=== PATIENT | female | born 1950 | race Hispanic/Latino ===

== ENCOUNTER 2019-02-17 16:03 | Emergency (ER) | payer MEDICARE, OTHER ==
[~2019-02-17] VITALS: Ht 162.6 cm; Wt 72.6 kg
--- OUTSIDE RECORDS SUMMARY | 2019-02-17 16:05 | XMS REPORT | Clinical Summary ---
Author Author NAHID [employer] 3DNell J. Red[facility] HospitalRevenewShrin[facility] Organization [facility] Address Unknown Phone Unavailable Care Team Providers Care Circulation Clerk Name Role Phone Abran Spearabel PCP Unavailable Allergies Comments Active Allergy Reactions Severity Noted Date cough Bad cough Chon Inhibitors Other (See 01/16/2015 Comments) Other reaction(s): Cough Lisinopril 03/10/2016 Medications End Date Status Medication Sig Dispensed Refills Start Date Active levothyroxine (SYNTHROID, Take 88 mcg 0 LEVOTHROID) 100 MCG by mouth tablet daily . Active valsartan-hydrochlorothia Take 1 tablet 0 zide (DIOVAN-HCT) by mouth 160-12.5 mg per tablet daily. Active estradiol (ESTRACE) 0.5 Take 0.5 mg 0 MG tablet by mouth daily. Active fluticasone (FLONASE) 50 1 spray by 0 mcg/actuation nasal spray Nasal route daily. Active pantoprazole (PROTONIX) Take 1 tablet 30 tablet 3 40 MG tablet (40 mg total) 5 by mouth daily. Active pantoprazole (PROTONIX) Take 1 tablet 30 tablet 9 40 MG tablet (40 mg total) 5 by mouth daily. Active traMADol (ULTRAM) 50 mg Take 50 mg by 0 tablet mouth every 6 (six) hours as needed for Pain. 01/28/2019 phenazopyridine Take 1 tablet 30 tablet 0 (PYRIDIUM) 100 MG tablet (100 mg 9 total) by mouth 3 (three) times daily as needed for up to 10 days. 01/23/2019 sulfamethoxazole-trimetho Take 1 tablet 10 tablet 0 prim (BACTRIM DS) 800-160 (160 mg of 9 mg per tablet trimethoprim total) by mouth 2 (two) times daily for 5 days. 01/28/2019 traMADol (ULTRAM) 50 mg Take 1 tablet 30 tablet 0 tablet (50 mg total) 9 by mouth every 6 (six) hours as needed for Pain for up to 10 days. Max Daily Amount: 200 mg Active Problems Problem Noted Date HECTOR (stress urinary incontinence, female) 01/18/2019 Encounters Care Team Description Date Type Specialty Suhail Suggs MD 01/18/2019 Anesthesia Event Luciano Munoz MD SLING,PUBO VAGINAL 01/18/2019 Surgery Luciano Munoz MD 01/18/2019 Hospital Encounter Luciano Munoz MD 01/04/2019 Hospital Pre-Admission Testing Encounter 01/04/2019 Orders Only General Internal Medicine after 02/16/2018 Social History Date Tobacco Use Types Packs/Day Years Used Never Smoker Smokeless Tobacco: Never Used Alcohol Use Drinks/Week oz/Week Comments Yes occassional Sex Assigned at Date Recorded Not on file Industry Job Start Date Occupation Not on file Not on file Not on file Travel End Travel History Travel Start No recent travel history available. Last Filed Vital Signs Time Taken Vital Sign Reading 01/18/2019 12:45 PM CDT Blood Pressure 120/68 01/18/2019 12:45 PM CDT Pulse 78 01/18/2019 12:45 PM CDT Temperature 35.9 C (96.7 F) 01/18/2019 12:45 PM CDT Respiratory Rate 17 01/18/2019 12:45 PM CDT Oxygen Saturation 96% - Inhaled Oxygen - Concentration 01/18/2019 6:25 AM CDT Weight 73.4 kg (161 lb 13.1 oz) 01/18/2019 6:25 AM CDT Height 162.6 cm (5' 4") 01/18/2019 6:25 AM CDT Body Mass Index 27.78 Plan of Treatment Not on file Implants Device Identifier Shelf Expiration Date Model / Serial / Lot Implanted Type Area Manufactur er 05/05/2021 [id number] / / [id number] Sys Halo Obtryx Ii [id number] - IMPLANTS N/A: Vagina [employer] [id number] SCI:UROLOG Implanted: Qty: 1 on 01/18/2019 by Y/GYNECLuciano Ramirez MD GY Procedures Comments Procedure Name Priority Date/Time Associated Diagnosis RHYTHM STRIP - SCAN 01/19/2019 4:20 PM CDT SLING,PUBO VAGINAL 01/18/2019 Female stress 9:15 AM CDT incontinence Special Needs (OBTRYX II SLING) ECG 12-LEAD Routine 01/04/2019 10:26 AM CDT Procedure Note - Interface, External Ris In - 01/04/2019 4:41 PM CDT Ventricula r Rate 58 BPM Atrial Rate 58 BPM P-R Interval 148 ms QRS Duration 90 ms Q-T Interval 470 ms QTC Calculatio n(Bazett) 461 ms P [place] 23 degrees R [place] 26 degrees T [place] 7 degrees Sinus bradycardi a Otherwise normal ECG When compared with ECG of 6 18:11, Vent. rate has decreased BY 45 BPM ECG 12-LEAD Routine 01/04/2019 10:26 AM CDT CBC W/PLT COUNT & AUTO Routine 01/04/2019 DIFFERENTIAL 10:24 AM CDT APTT Routine 01/04/2019 10:24 AM CDT PROTHROMBIN TIME/INR Routine 01/04/2019 10:24 AM CDT CBC W/PLT COUNT & AUTO Routine 01/04/2019 DIFFERENTIAL 10:24 AM CDT BASIC METABOLIC PANEL (7) Routine 01/04/2019 10:24 AM CDT URINALYSIS W/ MICROSCOPIC Routine 01/04/2019 10:24 AM CDT URINE CULTURE Routine 01/04/2019 10:24 AM CDT after 02/16/2018 Results * RHYTHM STRIP - SCAN (01/19/2019 4:20 PM CDT) Narrative Performed At * ECG 12 lead (01/04/2019 10:26 AM CDT) Specimen Narrative Performed At Ventricular Rate 58 BPM [facility] Atrial Rate 58 BPM P-R Interval 148 ms QRS Duration 90 ms Q-T Interval 470 ms QTC Calculation(Bazett) 461 ms P [place] 23 degrees R [place] 26 degrees T [place] 7 degrees Sinus bradycardia Otherwise normal ECG When compared with ECG of 02-JUN-2006 18:11, Vent. rate has decreased BY45 BPM Confirmed by MD ORTEGA JOSEPH P ([id number]) on 01/05/2019 6:57:08 AM Procedure Note Interface, External Ris In - 01/05/2019 6:57 AM CDT Ventricular Rate 58 BPM Atrial Rate 58 BPM P-R Interval 148 ms QRS Duration 90 ms Q-T Interval 470 ms QTC Calculation(Bazett) 461 ms P [place] 23 degrees R [place] 26 degrees T [place] 7 degrees Sinus bradycardia Otherwise normal ECG When compared with ECG of 02-JUN-2006 18:11, Vent. rate has decreased BY 45 BPM Confirmed by MD ORTEGA JOSEPH P ([id number]) on 01/05/2019 6:57:08 AM Performing Organization Address City/State/Zipcode Phone Number [facility] * CBC with platelet count + automated diff (01/04/2019 10:24 AM CDT) WBC 5.6 3.5 - 10.5 K/L [facility] RBC 4.85 3.93 - 5.22 M/L [facility] Hemoglobin 13.6 11.2 - 15.7 GM/DL [facility] Hematocrit 41.1 34.1 - 44.9 % [facility] MCV 84.7 79.4 - 94.8 fL [facility] MCH 28.0 25.6 - 32.2 pg [facility] MCHC 33.1 32.2 - 35.5 GM/DL [facility] RDW 12.9 11.7 - 14.4 % [facility] Platelets 199 150 - 450 K/CU MM [facility] MPV 9.2 (L) 9.4 - 12.3 fL [facility] nRBC 0 0 - 0 /100 WBC [facility] % Neutros 57 % [facility] % Lymphs 34 % [facility] % Monos 7 % [facility] % Eos 1 % [facility] % Baso 0 % [facility] # Neutros 3.21 1.56 - 6.13 K/L [facility] # Lymphs 1.91 1.18 - 3.74 K/L [facility] # Monos 0.39 (H) 0.24 - 0.36 K/L [facility] # Eos 0.08 0.04 - 0.36 K/L [facility] # Baso 0.02 0.01 - 0.08 K/L [facility] Immature 1 0 - 1 % [facility] Granulocytes-Relative [facility] Specimen Blood Performing Organization Address City/State/Zipcode Phone Number [facility] [address] [place] [address] [facility] * Urinalysis w/Microscopic (01/04/2019 10:24 AM CDT) Color, UA Light Yellow [facility] Clarity, UA Clear [facility] Specific [place], UA 1.010 1.001 - 1.035 [facility] pH, UA 6.0 5.0 - 8.0 [facility] Protein, UA Negative Negative [facility] Glucose, UA Negative Negative [facility] Ketones, UA Negative Negative [facility] Bilirubin, UA Negative Negative [facility] Blood, UA Negative Negative [facility] Nitrite, UA Negative Negative [facility] Leukocytes, UA Negative Negative [facility] Urobilinogen, UA 0.2 0.2 - 1.0 mg/dL [facility] RBC, UA <1 /HPF [facility] WBC, UA 3 /HPF [facility] Bacteria, UA Rare [facility] Squam Epithel, UA 1 /HPF [facility] Specimen Source Urine, Clean Catch [facility] Specimen Urine Performing Organization Address [facility] Phone Number [address] [address] [facility] * aPTT (01/04/2019 10:24 AM CDT) PTT 38.5 (H) 22.5 - 36.0 seconds [facility] Specimen Blood Performing Organization Address [facility] Phone Number [address] [address] [facility] * Prothrombin time/INR (01/04/2019 10:24 AM CDT) Protime 12.9 11.9 - 14.2 seconds [facility] INR 1.0 <=5.9 [facility] Specimen Blood Narrative Performed At Effective 11/23/2018: PT Reference Range Change [facility] New: 11.9-14.2Previous: 11.7-14.7 [facility] RECOMMENDED COUMADIN/WARFARIN INR THERAPY RANGES STANDARD DOSE: 2.0-3.0Includes: PROPHYLAXIS for venous thrombosis, systemic embolization; TREATMENT for venous thrombosis and/or pulmonary embolus. HIGH RISK: Target INR is 2.5-3.5 for patients wiht mechanical heart valves. Performing Organization Address [facility] Phone Number [address] [address] [facility] * Urine culture (01/04/2019 10:24 AM CDT) Result 90-99,000 col/mL Klebsiella [facility] pneumoniae (A) [facility] Specimen Urine Antibiotic Method Susceptibility Organism Amikacin <=2: Susceptible Klebsiella pneumoniae Ampicillin + Sulbactam 4: Susceptible Klebsiella pneumoniae Aztreonam <=1: Susceptible Klebsiella pneumoniae Cefepime <=1: Susceptible Klebsiella pneumoniae Cefoxitin <=4: Susceptible Klebsiella pneumoniae Ceftazidime <=1: Susceptible Klebsiella pneumoniae Ceftriaxone <=1: Susceptible Klebsiella pneumoniae Ertapenem <=0.5: Susceptible Klebsiella pneumoniae Gentamicin <=1: Susceptible Klebsiella pneumoniae Levofloxacin <=0.12: Susceptible Klebsiella pneumoniae Meropenem <=0.25: Susceptible Klebsiella pneumoniae Nitrofurantoin 64: Intermediate Klebsiella pneumoniae Piperacillin + Tazobactam <=4: Susceptible Klebsiella pneumoniae Tetracycline <=1: Susceptible Klebsiella pneumoniae Tobramycin <=1: Susceptible Klebsiella pneumoniae Trimethoprim + Sulfamethoxazole <=20: Susceptible Klebsiella pneumoniae Performing Organization Address City/[facility] Phone Number [facility] [phone] [place] [address] [facility] * Basic Metabolic Panel (01/04/2019 10:24 AM CDT) Sodium 138 136 - 145 meq/L [facility] Potassium 4.0 3.5 - 5.1 meq/L [facility] Chloride 104 98 - 107 meq/L [facility] CO2 26 22 - 29 meq/L [facility] BUN 13 7 - 21 mg/dL [facility] Creatinine 0.75 0.57 - 1.25 mg/dL [facility] Glucose 102 70 - 105 mg/dL [facility] Calcium 9.3 8.4 - 10.2 mg/dL [facility] EGFR 77Comment: ESTIMATED GFR IS mL/min/1.73 sq m [facility] NOT ACCURATE CREATININE [facility] CLEARANCE IN PREDICTING GLOMERULAR FILTRATION RATE. ESTIMATED GFR IS NOT APPLICABLE FOR DIALYSIS PATIENTS. Specimen Blood Performing Organization Address City/[facility]/Zipcode Phone Number [facility] [address] [place] [address] [facility] after 02/16/2018 Insurance Payer Benefit Subscriber ID Type Phone Address Plan / Group MEDICARE MEDICARE A xxxxxxxxxxx Medicare B CIGNA - MGD CARE CIGNA xxxxxxxxxxx HMO/POS HMO/POS/OP EN ACCESS
--- OUTSIDE RECORDS SUMMARY | 2019-02-17 16:06 | XMS REPORT | Summary of Care ---
Author Author [facility] Organization [facility] Address Unknown Phone Unavailable Care Team Providers Care Machine Stitcher Name Role Phone Phan Bee MD Unavailable Unavailable Ebenezer Stout MD Unavailable Owen Jenkins Unavailable Denisse Paige DO PCP Reason for Visit * Reason Comments Medical Concern Encounter Details Care Team Description Date Type Department Luciano Munoz MD [address] [facility] [facility] [facility] [address] [facility], [place] [address] Medical Concern 02/16/2019 Office Visit [facility] Urology [address] [place] [address], [facility] [place] [address] Allergies Comments Active Allergy Reactions Severity Noted Date Cough;pt stated Lisinopril Chon Inhibitors RESP 09/26/2008 documented as of this encounter (statuses as of 02/16/2019) Medications End Date Status Medication Sig Dispensed Refills Start Date Active cyclobenzaprine 0 (FLEXERIL) 10 MG tablet 7 Active mupirocin (BACTROBAN) 2 % Apply 0 ointment topically daily. Active Diclofenac Sodium 1 % Place 1 1 Tube 3 GELIndications: Stiffness application 8 of hand joint, onto the skin unspecified laterality, two times Arthralgia of hand, daily. unspecified laterality, Primary osteoarthritis of both hands, NSAID induced gastritis Active guaiFENesin-Codeine Take 5 mL by 180 mL 0 (GUAIFENESIN AC) 100-10 mouth 4 times 9 MG/5ML liquid daily as needed for Cough. Active valsartan-hydrochlorothia Take 1 Tab by 90 Tab 2 zide (DIOVAN-HCT) mouth daily. 9 160-12.5 MG per tabletIndications: Essential hypertension Active levothyroxine (SYNTHROID) Take 1 Tab by 90 Tab 3 88 MCG tabletIndications: mouth daily. 9 Hypothyroidism, unspecified type Active pantoprazole (PROTONIX) TAKE ONE (1) 90 Tab 1 40 MG tabletIndications: TABLET(S) BY 9 Gastroesophageal reflux MOUTH ONCE A disease without DAY. esophagitis Active Mirabegron ER (MYRBETRIQ) Take 25 mg by 30 Tab 3 25 MG [id number]: mouth daily. 9 Incomplete bladder emptying, Urinary frequency Active estradiol (ESTRACE Place 1 g 42.5 g 3 VAGINAL) 0.1 MG/GM vaginally 3 9 vaginal creamIndications: times weekly. Vaginal atrophy Use daily for 2 wks then 3 times weekly Active oxybutynin (DITROPAN-XL) Take 1 Tab by 30 Tab 6 10 MG CR mouth daily. 9 tabletIndications: Urinary frequency, Mixed incontinence Active levofloxacin (LEVAQUIN) Take 1 Tab by 7 Tab 0 500 MG tabletIndications: mouth daily. 9 Urinary tract infection without hematuria, site unspecified Active estradiol (ESTRACE) 0.5 TAKE ONE (1) 30 Tab 0 MG tabletIndications: TABLET(S) BY 9 Estrogen deficiency MOUTH ONCE A DAY. Active fluticasone (FLONASE) 50 INHALE TWO 16 g 0 MCG/ACT nasal (2) SPRAYS BY 9 sprayIndications: EACH NOSTRIL Allergic sinusitis ROUTE DAILY. Active phenazopyridine 0 (PYRIDIUM) 100 MG tablet 9 Active sulfamethoxazole-trimetho 0 prim (BACTRIM DS, SEPTRA 9 DS) 800-160 MG per tablet Active tramadol (ULTRAM) 50 MG 0 tablet 9 documented as of this encounter (statuses as of 02/16/2019) Active Problems Problem Noted Date Urinary incontinence 09/23/2017 Lumbar spinal stenosis 05/06/2016 Internal hemorrhoids with complication 03/20/2016 Thyroid nodule 03/07/2014 Snoring 09/08/2013 Hypothyroidism 09/24/2011 Overview: Toxic adenoma - 2010 - treated HTN (hypertension) 10/08/2009 Chronic colitis Overview: GI- Dr Canales - proctitis only in 2009 Recommendations: - 5 year colon cancer screening colonoscopy 3-5 year sigmoidoscopy to confirm lack of extension of colitis process. documented as of this encounter (statuses as of 02/16/2019) Resolved Problems Problem Noted Date Resolved Date H/O colonoscopy with polypectomy 08/29/2014 09/17/2016 Overview: Due in 2019 TMJ (temporomandibular joint disorder) 09/08/2013 12/02/2016 Toxic adenoma 01/20/2011 07/19/2013 Hyperthyroidism 10/20/2010 07/19/2013 Other and unspecified noninfectious gastroenteritis and colitis(558.9) 04/30/2010 09/17/2016 Overview: Dr. Canales - taking Asacol DISORDER, BACK NOS, L3-L5 FACET JOINT INFLAMMATION 12/20/2001 12/02/2016 SCREENING FOR MALIGNANT NEOPLASM, COLON 09/30/2001 07/04/2009 HX, FAMILY, MALIGNANCY NEC 09/30/2001 07/04/2009 Examination, gynecological 03/29/2001 07/04/2009 Hypertriglyceridemia 09/17/2016 Breast calcification, left 09/17/2016 Overview: benign as of 03/2011 documented as of this encounter (statuses as of 02/16/2019) Immunizations Name Administration Dates Next Due Influenza Hd 03/10/2018, 04/05/2017 Influenza Quad-PF 07/03/2015 Influenza Quadrivalent 09/17/2016 3YRS+ Influenza whole 07/19/2013, 06/03/2012, 04/30/2010 Pneumococcal 13-valent 01/01/2017 Conjugate Vaccine Pneumococcal 03/10/2018 Polysaccharide Tdap 03/05/2011 Zoster Live 07/22/2012 documented as of this encounter Social History Date Tobacco Use Types Packs/Day Years Used Never Smoker Smokeless Tobacco: Never Used Drinks/Week oz/Week Comments Alcohol Use 0-6 Standard drinks or equivalent 0.0 - 3.6 Yes Alcohol Habits Answer Date Recorded How often do you have a drink containing alcohol? Monthly or less 2018 How many drinks containing alcohol do you have on 1 or 2 2018 a typical day when you are drinking? How often do you have six or more drinks on one Never 2018 occasion? Sex Assigned at Date Recorded Not on file Industry Job Start Date Occupation Not on file Not on file Not on file Travel End Travel History Travel Start No recent travel history available. documented as of this encounter Last Filed Vital Signs Reading Time Taken Comments Vital Sign 139/82 02/16/2019 10:04 AM CDT Blood Pressure 68 02/16/2019 10:04 AM CDT Pulse 36.8 C (98.3 F) 02/16/2019 10:04 AM CDT Temperature - - Respiratory Rate - - Oxygen Saturation - - Inhaled Oxygen Concentration 72.6 kg (160 lb) 02/16/2019 10:04 AM CDT Weight 162.6 cm (5' 4") 02/16/2019 10:04 AM CDT Height 27.46 02/16/2019 10:04 AM CDT Body Mass Index documented in this encounter Progress Notes * Trupti Turner - 02/16/2019 10:05 AM CDT HPI Review of Systems Constitutional: Negative. Eyes: Negative. Respiratory: Negative. Cardiovascular: Negative. Gastrointestinal: Negative. Endocrine: Negative. Genitourinary: Negative. Musculoskeletal: Negative. Skin: Negative. Neurological: Negative. Hematological: Negative. Psychiatric/Behavioral: Negative. Physical Exam * Luciano Munoz MD - 02/16/2019 9:30 AM CDT Referring Physician Denisse Paige DO [address] [place] [address] Patient Name: Genesis Kyle :1950 [facility] ID#:[id number] Ms. Kyle is a 68 y.o. year old female who present to me for evaluation. Pt 1 month s/p TOT Obtryx II sling. Pt doing well, no HECTOR. Has occasional pains in suprapubic area but unrelated to bladder filling/activity. Past Medical History: Diagnosis Date Breast calcification, left benign as of 03/2011 Chronic colitis GI- Dr Canales GERD (gastroesophageal reflux disease) H/O colonoscopy with polypectomy 11/27/2009 History of one miscarriage History of RPR test 06/08/2012 Hyperthyroidism 10/20/2010 Hypertriglyceridemia Unspecified essential hypertension Past Surgical History: Procedure Laterality Date HX HYSTERECTOMY 2005 menorrhagia HX TONSILLECTOMY in childhood Medications Outpatient Medications Prior to Visit Medication Sig Dispense Refill cyclobenzaprine Diclofenac Sodium Place 1 application onto the skin two times daily. [address] 1 g vaginally 3 times weekly. Use daily for 2 wks then 3 arti es weekly 42.5 g 3 estradiol TAKE ONE (1) TABLET(S) BY MOUTH ONCE A DAY. 30 Tab 0 fluticasone INHALE TWO (2) SPRAYS BY EACH NOSTRIL ROUTE DAILY. 16 g 0 guaiFENesin-Codeine Take 5 mL by mouth 4 times daily as needed for Cough. 18 0 mL 0 levofloxacin Take 1 Tab by mouth daily. 7 Tab 0 levothyroxine Take 1 Tab by mouth daily. 90 Tab 3 Mirabegron ER Take 25 mg by mouth daily. 30 Tab 3 mupirocin Apply topically daily. oxybutynin Take 1 Tab by mouth daily. 30 Tab 6 pantoprazole TAKE ONE (1) TABLET(S) BY MOUTH ONCE A DAY. 90 Tab 1 phenazopyridine sulfamethoxazole-trimethoprim tramadol valsartan-hydrochlorothiazide Take 1 Tab by mouth daily. 90 Tab 2 No facility-administered medications prior to visit. Current Outpatient Medications: cyclobenzaprine (FLEXERIL) 10 MG tablet, , Disp: , Rfl: Diclofenac Sodium 1 % GEL, Place 1 application onto the skin two times dimple y., Disp: 1 Tube, Rfl: 3 estradiol (ESTRACE VAGINAL) 0.1 MG/GM vaginal cream, Place 1 g vaginally 3 times weekly. Use daily for 2 wks then 3 times weekly, Disp: 42.5 g, Rfl: 3 estradiol (ESTRACE) 0.5 MG tablet, TAKE ONE (1) TABLET(S) BY MOUTH ONCE A D AY., Disp: 30 Tab, Rfl: 0 fluticasone (FLONASE) 50 MCG/ACT nasal spray, INHALE TWO (2) SPRAYS BY EACH NOSTRIL ROUTE DAILY., Disp: 16 g, Rfl: 0 guaiFENesin-Codeine (GUAIFENESIN AC) 100-10 MG/5ML liquid, Take 5 mL by juan carlos th 4 times daily as needed for Cough., Disp: 180 mL, Rfl: 0 levofloxacin (LEVAQUIN) 500 MG tablet, Take 1 Tab by mouth daily., Disp: 7 Tab, Rfl: 0 levothyroxine (SYNTHROID) 88 MCG tablet, Take 1 Tab by mouth daily., Disp: 90 Tab, Rfl: 3 Mirabegron ER (MYRBETRIQ) 25 MG TB24, Take 25 mg by mouth daily., Disp: 30 Tab, Rfl: 3 mupirocin (BACTROBAN) 2 % ointment, Apply topically daily., Disp: , Rfl: oxybutynin (DITROPAN-XL) 10 MG CR tablet, Take 1 Tab by mouth daily., Disp: 30 Tab, Rfl: 6 pantoprazole (PROTONIX) 40 MG tablet, TAKE ONE (1) TABLET(S) BY MOUTH ONCE A DAY., Disp: 90 Tab, Rfl: 1 phenazopyridine (PYRIDIUM) 100 MG tablet, , Disp: , Rfl: sulfamethoxazole-trimethoprim (BACTRIM DS, SEPTRA DS) 800-160 MG per tablet , , Disp: , Rfl: tramadol (ULTRAM) 50 MG tablet, , Disp: , Rfl: valsartan-hydrochlorothiazide (DIOVAN-HCT) 160-12.5 MG per tablet, Take 1 T ab by mouth daily., Disp: 90 Tab, Rfl: 2 Social History Socioeconomic History Marital status: Spouse name: Not on file Number of children: 2 Years of education: Not on file Highest education level: Not on file Occupational History Occupation: legal secretary receptionist Employer: [employer] Social Needs Financial resource strain: Not on file Food insecurity: Worry: Not on file Inability: Not on file Transportation needs: Medical: Not on file Non-medical: Not on file Tobacco Use Smoking status: Never Smoker Smokeless tobacco: Never Used Substance and Sexual Activity Alcohol use: Yes Alcohol/week: 0.0 - 3.6 oz Frequency: Monthly or less Drinks per session: 1 or 2 Binge frequency: Never Drug use: Not on file Sexual activity: Not on file Lifestyle Physical activity: Days per week: Not on file Minutes per session: Not on file Stress: Not on file Relationships Social connections: Talks on phone: Not on file Gets together: Not on file Attends faith service: Not on file Active member of club or organization: Not on file Attends meetings of clubs or organizations: Not on file Relationship status: Not on file Intimate partner violence: Fear of current or ex partner: Not on file Emotionally abused: Not on file Physically abused: Not on file Forced sexual activity: Not on file Other Topics Concerns: Not on file Social History Narrative 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 Allergies Allergen Reactions Chon Inhibitors RESP Cough;pt stated Lisinopril Review of Systems: Constitutional: Negative. Eyes: Negative. Respiratory: Negative. Cardiovascular: Negative. Gastrointestinal: Negative. Endocrine: Negative. Genitourinary: Negative. Musculoskeletal: Negative. Skin: Negative. Neurological: Negative. Hematological: Negative. Psychiatric/Behavioral: Negative. Physical Exam: Vitals: see in note above GENERAL: Well developed, well nourished, in no acute distress HEAD: Normocephalic and atraumatic CHEST Regular respiratory rate PELVIC EXAM Vaginal atrophy, no sling erosion, midline suture still intact NEURO: WOLF well. Patient alert and oriented x3. PSYCH: Alert and cooperative; normal mood and affect; normal attention span and con centration Most Recent Labs: Results for orders placed or performed in visit on 02/16/19 (from the past 4032 hour(s)) POCT URINALYSIS DIPSTICK Collection Time: 02/16/19 12:00 AM Result Value Ref Range COLOR UA Yellow YELLOW/STRAW CLARITY UA Clear CLEAR GLUCOSE UA Negative NEGATIVE BILIRUBIN UA Negative NEGATIVE KETONES UA Negative NEGATIVE SPECIFIC GRAVITY UA 1.020 1.005 - 1.035 BLOOD UA Negative NEGATIVE PH UA 5.0 5 - 9 PROTEIN UA Negative NEGATIVE UROBILINOGEN UA 0.02 E.U/DL NORMAL MG/DL LEUKOCYTE ESTERASE UA Negative NEGATIVE NITRITE UA Negative NEGATIVE REDUCING SUBSTANCES URINE NEGATIVE Results for orders placed or performed in visit on 01/04/19 (from the past 4032 hour(s)) URINE CULTURE Collection Time: 01/04/19 10:24 AM Result Value Ref Range AMIKACIN <=2 (S) AMPICILLIN/SULBACTAM 4 (S) MICROSCOPIC <=1 (S) CEFEPIME <=1 (S) CEFOXITIN <=4 (S) CEFTAZIDIME <=1 (S) CEFTRIAXONE <=1 (S) ADDENDUM 2 <=0.5 (S) GENTAMICIN <=1 (S) LEVOFLOXACIN <=0.12 (S) MEROPENEM <=0.25 (S) NITROFURANTOIN 64 (I) PIPERACILLIN/TAZOBACTAM <=4 (S) TETRACYCLINE <=1 (S) TOBRAMCYIN <=1 (S) TRIMETHOPRIM/SULFAMETHOXAZOLE <=20 (S) CBC W/AUTO DIFF WITH PLATELETS Collection Time: 01/04/19 10:24 AM Result Value Ref Range WHITE BLOOD CELL COUNT 5.6 3.5 - 10.5 K/ L RED BLOOD CELL COUNT 4.85 3.93 - 5.22 M/ L HEMOGLOBIN 13.6 11.2 - 15.7 GM/DL HEMATOCRIT 41.1 34.1 - 44.9 % MEAN CORPUSCULAR VOLUME 84.7 79.4 - 94.8 fL MEAN CORPUSCULAR HEMOGLOBIN 28.0 25.6 - 32.2 pg MEAN CORPUSCULAR HEMOGLOBIN CONC 33.1 32.2 - 35.5 GM/DL RED CELL DISTRIBUTION WIDTH 12.9 11.7 - 14.4 % PLATELET COUNT 199 150 - 450 K/CU MM MEAN PLATELET VOLUME 9.2 (L) 9.4 - 12.3 fL NUCLEATED RED BLOOD CELLS 0 0 - 0 /100 WBC NEUTROPHILS % 57 % LYMPHOCYTES % 34 % MONOCYTES % 7 % EOSINOPHILS % 1 % BASOPHILS % 0 % NEUTROPHILS ABSOLUTE COUNT 3.21 1.56 - 6.13 K/ L LYMPHOCYTES ABSOLUTE COUNT 1.91 1.18 - 3.74 K/ L MONOCYTES ABSOLUTE COUNT 0.39 (H) 0.24 - 0.36 K/ L EOSINOPHILS ABSOLUTE COUNT 0.08 0.04 - 0.36 K/ L BASOPHILS ABSOLUTE COUNT 0.02 0.01 - 0.08 K/ L IMMATURE GRANULOCYTES 1 0 - 1 % PROTIME-INR Collection Time: 01/04/19 10:24 AM Result Value Ref Range PROTIME 12.9 11.9 - 14.2 seconds INR 1.0 <=5.9 APTT Collection Time: 01/04/19 10:24 AM Result Value Ref Range PARTIAL THROMBOPLASTIN TIME 38.5 (H) 22.5 - 36.0 seconds BASIC METABOLIC PANEL Collection Time: 01/04/19 10:24 AM Result Value Ref Range SODIUM 138 136 - 145 meq/L POTASSIUM 4.0 3.5 - 5.1 meq/L CHLORIDE 104 98 - 107 meq/L CO2 26 22 - 29 meq/L BLOOD UREA NITROGEN 13 7 - 21 mg/dL CREATININE 0.75 0.57 - 1.25 mg/dL GLUCOSE 102 70 - 105 mg/dL CALCIUM 9.3 8.4 - 10.2 mg/dL EGFR 77 mL/min/1.73 sq m URINALYSIS AUTO W/SCOPE Collection Time: 01/04/19 10:24 AM Result Value Ref Range COLOR UA Light Yellow CLARITY UA Clear SPECIFIC GRAVITY UA 1.010 1.001 - 1.035 PH UA 6.0 5.0 - 8.0 PROTEIN UA Negative Negative GLUCOSE UA Negative Negative KETONES UA Negative Negative BILIRUBIN UA Negative Negative BLOOD UA Negative Negative NITRITE UA Negative Negative LEUKOCYTE ESTERASE UA Negative Negative UROBILINOGEN UA 0.2 0.2 - 1.0 mg/dL RBC UA <1 /HPF WBC UA 3 /HPF BACTERIA Rare SQUAMOUS EPITHELIAL 1 /HPF SOURCE Urine, Clean Catch Results for orders placed or performed in visit on 10/13/18 (from the past 4032 hour(s)) POCT URINALYSIS DIPSTICK Collection Time: 10/13/18 12:00 AM Result Value Ref Range COLOR UA Yellow YELLOW/STRAW CLARITY UA Clear CLEAR GLUCOSE UA Negative NEGATIVE BILIRUBIN UA Negative NEGATIVE KETONES UA Negative NEGATIVE SPECIFIC GRAVITY UA 1.025 1.005 - 1.035 BLOOD UA Small 1+ NEGATIVE PH UA 6.0 5 - 9 PROTEIN UA Negative NEGATIVE UROBILINOGEN UA 0.02 E.U/DL NORMAL MG/DL LEUKOCYTE ESTERASE UA Negative NEGATIVE NITRITE UA Negative NEGATIVE REDUCING SUBSTANCES URINE NEGATIVE Results for orders placed or performed in visit on 09/29/18 (from the past 4032 hour(s)) POCT URINALYSIS DIPSTICK Collection Time: 09/29/18 10:45 AM Result Value Ref Range COLOR UA Eli YELLOW/STRAW CLARITY UA Clear CLEAR GLUCOSE UA Negative NEGATIVE BILIRUBIN UA Negative NEGATIVE KETONES UA Negative NEGATIVE SPECIFIC GRAVITY UA 1.010 1.005 - 1.035 BLOOD UA Negative NEGATIVE PH UA 6.5 5 - 9 PROTEIN UA Negative NEGATIVE UROBILINOGEN UA 0.02 E.U/DL NORMAL MG/DL LEUKOCYTE ESTERASE UA Trace NEGATIVE NITRITE UA Trace NEGATIVE REDUCING SUBSTANCES URINE NEGATIVE CULTURE, URINE/SENSITIVITY ON ALL Collection Time: 09/29/18 2:00 PM Result Value Ref Range CULTURE, URINE/SENSITIVITY ON ALL SPECIMEN NUMBER: [id number] URINALYSIS AUTO W/SCOPE Collection Time: 09/29/18 2:00 PM Result Value Ref Range COLOR UA YELLOW YELLOW-STRAW CLARITY UA CLOUDY (A) CLEAR SPECIFIC GRAVITY UA 1.015 1.005 - 1.035 LEUKOCYTE ESTERASE UA NEGATIVE NEGATIVE NITRITE UA NEGATIVE NEGATIVE PH UA 5.0 5.0 - 9.0 PROTEIN UA NEGATIVE NEGATIVE GLUCOSE UA NEGATIVE NEGATIVE KETONES UA NEGATIVE NEGATIVE UROBILINOGEN UA <2.0 <=2.0 MG/DL BILIRUBIN UA NEGATIVE NEGATIVE OCCULT BLOOD UA NEGATIVE NEGATIVE WBC UA 0-5 0 - 5 /HPF RBC UA 0 0 - 5 /HPF EPITHELIAL CELLS 15-20 (A) 0 - 10 /HPF BACTERIA 2+ (A) NEGATIVE CASTS, URINE TRACE NONE-TRACE /LPF Urinalysis:neg PVR: 6 ml Most Recent Imaging: No images are attached to the encounter. Assessment: 1. S/p TOT Obtryx II sling--doing well Plan: 1. Resume normal activities 2. RTC 3 months with pvr 3. Rx estrace cream 3x/wk documented in this encounter Plan of Treatment Health Maintenance Due Date Last Done Comments FLU VACCINE > 6 MONTHS 01/26/2019 03/10/2018, 03/10/2018, 04/05/2017, Additional history exists BMI FOLLOW UP PLAN 03/10/2019 03/10/2018 COLON CANCER SCREENIN08/30/2019 08/29/2014, 03/07/2010 COLONOSCOPY FALL SCREEN 09/23/2019 2018 MEDICARE AWV 09/23/2019 2018, 2018, 09/23/2017, Additional history exists MAMMOGRAM ANNUAL 10/11/2019 10/10/2018, 10/08/2017, 09/25/2016, Additional history exists TETANUS SHOT (ADULT) 03/05/2021 03/05/2011 HEPATITIS C SCREENING Completed 06/03/2012 PREVNAR >=65 (PCV13) Completed 01/01/2017 OSTEOPOROSIS SCREENING Completed 10/08/2017, 08/13/2014 PNEUMOVAX >=65 (PPSV23) Completed 03/10/2018, 03/10/2018 documented as of this encounter Procedures Comments Procedure Name Priority Date/Time Associated Diagnosis LATOYA,POST-VOID Routine 02/16/2019 Incomplete bladder RES,US,NON-IMG emptying POCT URINALYSIS DIPSTICK Routine 02/16/2019 Incomplete bladder emptying documented in this encounter Results * LATOYA,POST-VOID RES,US,NON-IMG (02/16/2019) PVR 6 cc/ml * POCT URINALYSIS DIPSTICK (02/16/2019) COLOR UA Yellow YELLOW/STRAW CLARITY UA Clear CLEAR GLUCOSE UA Negative NEGATIVE BILIRUBIN UA Negative NEGATIVE KETONES UA Negative NEGATIVE SPECIFIC 1.020 1.005 - 1.035 GRAVITY UA BLOOD UA Negative NEGATIVE PH UA 5.0 5 - 9 PROTEIN UA Negative NEGATIVE UROBILINOGEN UA 0.02 E.U/DL NORMAL MG/DL LEUKOCYTE Negative NEGATIVE ESTERASE UA NITRITE UA Negative NEGATIVE REDUCING NEGATIVE SUBSTANCES URINE Specimen documented in this encounter Visit Diagnoses Diagnosis Incomplete bladder emptying - Primary documented in this encounter Insurance Type Payer Benefit Subscriber ID Effective Phone Address Plan / Dates Group Medicare MEDICARE MEDICARE xxxxxxxxxx 2016-P [id number] [place] [address] O [employer] [facility] OPEN xxxxxxxxxxx 2016-1 [id number] PLUS - [place] [employer] [phone] documented as of this encounter Advance Directives Patient Skidder Explanation Type Date Recorded Advance Directives and Living Will Power of Concrete Conveyor Operator
--- OUTSIDE RECORDS SUMMARY | 2019-02-17 16:06 | XMS REPORT ---
Author Author [facility] Address Unknown Phone Unavailable Care Team Providers Care Stain Sprayer Name Role Phone TIMOTHY VARGAS Unavailable Unavailable Problems This patient has no known problems. Allergies, Adverse Reactions, Alerts This patient has no known allergies or adverse reactions. Medications This patient has no known medications. Results Test Description Test Time Test Comments Text Results Atomic Results Result Comments URINE CULTURE 2019-01-06 11:14:00 CULTURE (BEAKER) (test yrrp=8841) KLEBSIELLA PNEUMONIAE 90-99,000 col/mL Klebsiella pneumoniae Amikacin (test code=1) Ampicillin + Sulbactam (test code=6) Aztreonam (test code=32) Cefepime (test code=51) Cefoxitin (test code=68) Ceftazidime (test code=27) Ceftriaxone (test code=52) Ertapenem (test code=38) Gentamicin (test code=18) Levofloxacin (test code=22) Meropenem (test code=34) Nitrofurantoin (test code=23) Piperacillin + Tazobactam (test code=29) Tetracycline (test code=2) Tobramycin (test code=25) Trimethoprim + Sulfamethoxazole (test code=47) URINALYSIS W/ [id number] 11:28:00* Test Item Value Reference Range Comments COLOR (BEAKER) (test xwst=938) Light Yellow CLARITY (BEAKER) (test ysdc=712) Clear SPECIFIC GRAVITY UA (BEAKER) (test yjke=917) 1.010 1.001-1.035 PH UA (BEAKER) (test zydy=084) 6.0 5.0-8.0 PROTEIN UA (BEAKER) (test gmet=395) Negative Negative GLUCOSE UA (BEAKER) (test pxum=732) Negative Negative KETONES UA (BEAKER) (test qsxv=521) Negative Negative BILIRUBIN UA (BEAKER) (test qsck=107) Negative Negative BLOOD UA (BEAKER) (test wmdw=638) Negative Negative NITRITE UA (BEAKER) (test dklq=376) Negative Negative LEUKOCYTE ESTERASE UA (BEAKER) (test szce=830) Negative Negative UROBILINOGEN UA (BEAKER) (test akaw=061) 0.2 mg/dL 0.2-1.0 RBC UA (BEAKER) (test vpjl=286) < /HPF WBC UA (BEAKER) (test yari=871) 3 /HPF BACTERIA (BEAKER) (test surr=176) Rare SQUAMOUS EPITHELIAL (BEAKER) (test cajr=829) 1 /HPF SOURCE(BEAKER) (test yqxs=2828) Urine, Clean Catch BASIC METABOLIC [id number] 11:06:00* Test Item Value Reference Range Comments SODIUM (BEAKER) (test fosd=184) 138 meq/L 136-145 POTASSIUM (BEAKER) (test pinn=482) 4.0 meq/L 3.5-5.1 CHLORIDE (BEAKER) (test izww=174) 104 meq/L 98-107 CO2 (BEAKER) (test cvsx=084) 26 meq/L 22-29 BLOOD UREA NITROGEN (BEAKER) (test oedt=006) 13 mg/dL 7-21 CREATININE (BEAKER) (test yyno=404) 0.75 mg/dL 0.57-1.25 GLUCOSE RANDOM (BEAKER) (test idly=402) 102 mg/dL 70-105 CALCIUM (BEAKER) (test tohs=549) 9.3 mg/dL 8.4-10.2 EGFR (BEAKER) (test nktv=1523) 77 mL/min/1.73 sq m ESTIMATED GFR IS NOT ACCURATE CREATININE CLEARANCE IN PREDICTING GLOMERULAR FILTRATION RATE. ESTIMATED GFR IS NOT APPLICABLE FOR DIALYSIS PATIENTS. PROTHROMBIN TIME/[id number] 10:52:00* Test Item Value Reference Range Comments PROTIME (BEAKER) (test deey=183) 12.9 seconds 11.9-14.2 INR (BEAKER) (test vqmu=624) 1.0 <=5.9 Effective 11/23/2018: PT Reference Range ChangeNew: 11.9-14.2 Previous: 11.7-14. 7RECOMMENDED COUMADIN/WARFARIN INR THERAPY RANGESSTANDARD DOSE: 2.0-3.0 Include s: PROPHYLAXIS for venous thrombosis, systemic embolization; TREATMENT for venou s thrombosis and/or pulmonary embolus.HIGH RISK: Target INR is 2.5-3.5 for patie nts wiht mechanical heart valves.[id number] 10:52:00* Test Item Value Reference Range Comments PARTIAL THROMBOPLASTIN TIME (BEAKER) (test phlj=774) 38.5 seconds 22.5-36.0 CBC W/PLT COUNT & AUTO [id number] 10:46:00* Test Item Value Reference Range Comments WHITE BLOOD CELL COUNT (BEAKER) (test mkjh=669) 5.6 K/ L 3.5-10.5 RED BLOOD CELL COUNT (BEAKER) (test uudp=949) 4.85 M/ L 3.93-5.22 HEMOGLOBIN (BEAKER) (test wpzz=898) 13.6 GM/DL 11.2-15.7 HEMATOCRIT (BEAKER) (test gpmr=751) 41.1 % 34.1-44.9 MEAN CORPUSCULAR VOLUME (BEAKER) (test webx=233) 84.7 fL 79.4-94.8 MEAN CORPUSCULAR HEMOGLOBIN (BEAKER) (test rpkd=057) 28.0 pg 25.6-32.2 MEAN CORPUSCULAR HEMOGLOBIN CONC (BEAKER) (test msvj=503) 33.1 GM/DL 32.2-35.5 RED CELL DISTRIBUTION WIDTH (BEAKER) (test pubh=014) 12.9 % 11.7-14.4 PLATELET COUNT (BEAKER) (test lafz=653) 199 K/CU MM 150-450 MEAN PLATELET VOLUME (BEAKER) (test sjpa=696) 9.2 fL 9.4-12.3 NUCLEATED RED BLOOD CELLS (BEAKER) (test zhqw=298) 0 /100 WBC 0-0 NEUTROPHILS RELATIVE PERCENT (BEAKER) (test zqzp=591) 57 % LYMPHOCYTES RELATIVE PERCENT (BEAKER) (test amfi=012) 34 % MONOCYTES RELATIVE PERCENT (BEAKER) (test sgtm=713) 7 % EOSINOPHILS RELATIVE PERCENT (BEAKER) (test hjye=703) 1 % BASOPHILS RELATIVE PERCENT (BEAKER) (test wxqd=828) 0 % NEUTROPHILS ABSOLUTE COUNT (BEAKER) (test atnc=682) 3.21 K/ L 1.56-6.13 LYMPHOCYTES ABSOLUTE COUNT (BEAKER) (test rlxd=123) 1.91 K/ L 1.18-3.74 MONOCYTES ABSOLUTE COUNT (BEAKER) (test pkre=640) 0.39 K/ L 0.24-0.36 EOSINOPHILS ABSOLUTE COUNT (BEAKER) (test nkpo=542) 0.08 K/ L 0.04-0.36 BASOPHILS ABSOLUTE COUNT (BEAKER) (test mqkr=608) 0.02 K/ L 0.01-0.08 IMMATURE GRANULOCYTES-RELATIVE PERCENT (BEAKER) (test bcgy=6666) 1 % 0-1
== END 2019-02-17 16:46 | disposition home or self-care (01) ==
LOC: FSED 16:03
DX: J02.0 Streptococcal pharyngitis (principal)
CPT/HCPCS: 83518; 99283

== ENCOUNTER 2020-12-14 12:03 | Emergency (ER) | payer MEDICARE, OTHER ==
[~2020-12-14] VITALS: Ht 162.6 cm; Wt 73.5 kg
[2020-12-14] MEDS ORDERED: FLUCONAZOLE100 MG PO (12:39)
[2020-12-14] MEDS ORDERED: CEFDINIR300 MG PO (12:39)
[2020-12-14] MEDS ORDERED: IBUPROFEN IB200 MG PO (12:39)
[2020-12-14] MEDS ORDERED: CEFTRIAXONE 1 GM VIAL IM ONE (12:45)
== END 2020-12-14 13:01 | disposition home or self-care (01) ==
LOC: FSED 12:19
DX: R30.0 Dysuria (principal); N30.90 Cystitis, unspecified without hematuria; I10 Essential (primary) hypertension; E03.9 Hypothyroidism, unspecified
CPT/HCPCS: 81003; 96372; 99283; J0696

== ENCOUNTER 2021-11-22 18:48 | Emergency (ER) | payer MEDICARE, OTHER ==
[~2021-11-22] VITALS: Ht 162.6 cm; Wt 73.5 kg
[~2021-11-22 18:48] MED LIST: CEFDINIR300 MG PO; FLUCONAZOLE100 MG PO; IBUPROFEN IB200 MG PO
[2021-11-22] MEDS ORDERED: PREDNISONE20 MG PO (20:45)
[2021-11-22] MEDS ORDERED: PREDNISONE 20 MG TAB PO ONE (20:45)
[2021-11-22] MEDS ORDERED: NAPROSYN500 MG PO (20:46)
[2021-11-22] MEDS ORDERED: PREDNISONE 20 MG TAB ONE (20:59)
== END 2021-11-22 21:25 | disposition home or self-care (01) ==
LOC: FSED 20:20
DX: M46.1 Sacroiliitis, not elsewhere classified (principal); I10 Essential (primary) hypertension; E03.9 Hypothyroidism, unspecified; K21.9 Gastro-esophageal reflux disease without esophagitis; Z88.8 Allergy status to other drugs, medicaments and biological substances
CPT/HCPCS: 99283; J7512

== ENCOUNTER 2022-03-04 10:26 | Emergency (ER) | payer MEDICARE, OTHER ==
[~2022-03-04] VITALS: Ht 162.6 cm; Wt 73.5 kg
[~2022-03-04 10:26] MED LIST changes: +NAPROSYN500 MG PO; +PREDNISONE20 MG PO
[2022-03-04] MEDS ORDERED: METOCLOPRAMIDE HCL 10 MG/2ML VIAL IV ONE (11:15)
[2022-03-04] MEDS ORDERED: SODIUM CHLORIDE 0.9% 1000ML 1,000 ML IV SCH (11:15)
[2022-03-04] MEDS ORDERED: DEXAMETHASONE SOD PHOS 10 MG/1 ML VIAL IV ONE (11:15)
[2022-03-04] MEDS ORDERED: DIPHENHYDRAMINE HCL INJ 50 MG/ML VIAL IV ONE (11:15)
[2022-03-04] MEDS ORDERED: METOCLOPRAMIDE HCL 10 MG/2ML VIAL ONE (11:36)
[2022-03-04] MEDS ORDERED: SODIUM CHLORIDE 0.9% 1000ML 1,000 ML ONE (11:36)
[2022-03-04] MEDS ORDERED: DIPHENHYDRAMINE HCL INJ 50 MG/ML VIAL ONE (11:36)
[2022-03-04] MEDS ORDERED: DEXAMETHASONE SOD PHOS INJ 4 MG/ML SDV ONE (11:36)
[2022-03-04] MEDS ORDERED: KETOROLAC TROMETHAMINE 30 MG/ML VIAL IV ONE (12:45)
[2022-03-04 13:04] VITALS: BP 120/72
== END 2022-03-04 13:05 | disposition home or self-care (01) ==
LOC: FSED 10:30
DX: R51.9 Headache, unspecified (principal); I10 Essential (primary) hypertension; K21.9 Gastro-esophageal reflux disease without esophagitis; E03.9 Hypothyroidism, unspecified
CPT/HCPCS: 70450; 80053; 81003; 85025; 87400; 99284; J1100 ×2; J1200; J1885; J2765; J7030

== ENCOUNTER 2022-08-18 10:11 | Emergency (ER) | payer MEDICARE, OTHER ==
[~2022-08-18] VITALS: Ht 162.6 cm; Wt 73.2 kg
[2022-08-18] MEDS ORDERED: DIOVAN HCT 1601 EACH (11:00)
[2022-08-18] MEDS ORDERED: LEVOTHYROXINE88 MCG PO (11:00)
[2022-08-18] MEDS ORDERED: PROTONIX20 MG PO (11:00)
[2022-08-18] MEDS ORDERED: ESTRADIOL1 MG PO (11:00)
[2022-08-18] MEDS ORDERED: SODIUM CHLORIDE 0.9% 1000ML 1,000 ML IV STA (11:03)
[2022-08-18] MEDS ORDERED: FAMOTIDINE 20 MG/2 ML VIAL IV ONE ×2 (11:15→11:22)
[2022-08-18] MEDS ORDERED: KETOROLAC TROMETHAMINE 30 MG/ML VIAL IV ONE (11:15)
[2022-08-18] MEDS ORDERED: ONDANSETRON HCL INJ 2MG/ML 2ML 2 MG/ML VIAL IV ONE (11:15)
[2022-08-18] MEDS ORDERED: ONDANSETRON HCL INJ 2MG/ML 2ML 2 MG/ML VIAL ONE (11:22)
[2022-08-18] MEDS ORDERED: SODIUM CHLORIDE 0.9% 1000ML 1,000 ML ONE (11:22)
[2022-08-18] MEDS ORDERED: KETOROLAC TROMETHAMINE 30 MG/ML VIAL ONE (11:22)
[2022-08-18] MEDS ORDERED: FAMOTIDINE20 MG PO (11:23)
[2022-08-18] MEDS ORDERED: MAALOX MAXIMUM355 ML PO (11:23)
[2022-08-18] MEDS ORDERED: ONDANSETRON ODT4 MG PO (11:23)
== END 2022-08-18 11:58 | disposition home or self-care (01) ==
LOC: FSED 10:16
DX: R11.2 Nausea with vomiting, unspecified (principal); K52.9 Noninfective gastroenteritis and colitis, unspecified; E86.0 Dehydration; I10 Essential (primary) hypertension; E03.9 Hypothyroidism, unspecified; K21.9 Gastro-esophageal reflux disease without esophagitis
CPT/HCPCS: 80048; 80076; 81003; 85025; 96374; 96375; 99284; J1885; J2405; J7030

== ENCOUNTER 2022-11-06 20:56 | Emergency (ER) | payer MEDICARE, OTHER ==
[~2022-11-06] VITALS: Ht 162.6 cm; Wt 73.0 kg
[~2022-11-06 20:56] MED LIST changes: +DIOVAN HCT 1601 EACH; +ESTRADIOL1 MG PO; +FAMOTIDINE20 MG PO; +LEVOTHYROXINE88 MCG PO; +MAALOX MAXIMUM355 ML PO; +ONDANSETRON ODT4 MG PO; +PROTONIX20 MG PO
[2022-11-06] MEDS ORDERED: ONDANSETRON HCL INJ 2MG/ML 2ML 2 MG/ML VIAL ONE (21:36)
[2022-11-06] MEDS ORDERED: SODIUM CHLORIDE 0.9% 1000ML 1,000 ML ONE (21:36)
[2022-11-06] MEDS ORDERED: FAMOTIDINE 20 MG/2 ML VIAL IV ONE (21:44)
[2022-11-06] MEDS ORDERED: FAMOTIDINE 20 MG/2 ML VIAL IV STA (22:05)
[2022-11-06] MEDS ORDERED: ONDANSETRON HCL INJ 2MG/ML 2ML 2 MG/ML VIAL IV STA (22:05)
[2022-11-06] MEDS ORDERED: SODIUM CHLORIDE 0.9% 1000ML 1,000 ML IV ONE (22:15)
[2022-11-06] MEDS ORDERED: SODIUM CHLORIDE 0.9% 500ML 500 ML ONE (22:56)
[2022-11-06] MEDS ORDERED: SODIUM CHLORIDE 0.9% 500ML 500 ML IV ONE (23:00)
[2022-11-06] MEDS ORDERED: IOPAMIDOL 610MG/1ML 300 MG/ML VIAL IV ONE (23:14)
[2022-11-07] VITALS: O2SAT 97
[2022-11-07] MEDS ORDERED: ONDANSETRON ODT4 MG PO (00:16)
[2022-11-07] MEDS ORDERED: FAMOTIDINE20 MG PO (00:18)
== END 2022-11-07 00:37 | disposition home or self-care (01) ==
LOC: FSED 21:13
DX: R11.2 Nausea with vomiting, unspecified (principal); K29.70 Gastritis, unspecified, without bleeding; K21.9 Gastro-esophageal reflux disease without esophagitis; I10 Essential (primary) hypertension; E03.9 Hypothyroidism, unspecified; Z98.84 Bariatric surgery status; R94.31 Abnormal electrocardiogram [ECG] [EKG]; Z20.822 Contact with and (suspected) exposure to COVID-19
CPT/HCPCS: 71046; 74177; 80048; 80076; 81003; 82553; 84484; 85025; 93005; 99284; J2405; J7030; J7040; Q9967; U0002